=== PATIENT | female | born 1950 | race Caucasian/White ===

== ENCOUNTER 2020-11-04 05:34 | Day surgery (SDC) | payer MEDICARE, OTHER ==
[~2020-11-04] VITALS: Ht 158 cm; Wt 80.0 kg
[~2020-11-04 05:34] MED LIST: ASPIRIN EC81 MG PO; ATARAX25 MG PO; ATORVASTATIN CA40 MG PO; BACLOFEN20 MG PO; BUSPIRONE HCL15 M1 PO; DICLOFENAC SODI75 MG PO; DOXEPIN HCL25 MG PO; DULOXETINE HCL30 MG PO; METOPROLOL SUCC25 MG PO; OMEPRAZOLE40 MG PO; PREGABALIN200 MG PO; ROPINIROLE HCL5 MG PO; TIZANIDINE HCL4 MG PO; TRAMADOL HCL50 MG PO; TRAZODONE 100M100 MG PO
[2020-11-04] MEDS ORDERED: PERCOCET 5-3251 EACH PO (07:01)
[2020-11-04] MEDS ORDERED: FEOSOL325 MG PO (14:02)
[2020-11-05 05:21] LABS: BUN/CREAT RATIO (CALC) 29.7 RATIO; CREATININE 0.64 mg/dL (0.51-0.95); POTASSIUM 4.1 mmol/L (3.5-5.1)
[2020-11-05 05:28] LABS: BASOPHIL 0.1 % (0-2); EOSINOPHIL 0 % (0-7); HCT 33.1 % (37.0-47.0); HGB 11.3 g/dl (12.5-16.0); LYMPHOCYTE 8.6 % (15-48); MCH 30.6 pg (25.0-31.0); MCHC 34.1 g/dL (32.0-36.0); MCV 89.7 fL (78.0-100.0); MONOCYTE 11.7 % (0-12); NRBC 0; PLT 211 K/uL (150-400); RBC 3.69 M/uL (4.20-5.40); RDW 11.9 % (11.5-14.0); WBC 14.6 K/uL (4.0-10.5)
--- NOTE | 2020-11-05 13:23 | NUR ---
PT HAS REQUESTED TO GO TO [facility]. REFERRAL SENT TO [facility]. PT. HAS BEEN ACCEPTED PENDING COVID TEST. ADVISED XOCHILT MCGRATH AND SERA RIOS. ADVISED MARY ANN GAONA TO FAX D/C SUMMARY TO [facility] AT [phone] WELL COVID TEST. PT HAS SIGNED CHOICE FORM.
[2020-11-05] MEDS ORDERED: TAB-A-VITE TA400 MC1 PO (13:31)
[2020-11-05] MEDS ORDERED: STIMULANT LAXA1 EACH PO (13:31)
[2020-11-05] MEDS ORDERED: OXYCODONE-ACET1 EAC1 PO (13:31)
[2020-11-05] MEDS ORDERED: LAXATIVE SUPPOS10 MG PR (13:31)
[2020-11-05] MEDS ORDERED: DULCOLAX5 MG PO (13:31)
[2020-11-05] MEDS ORDERED: MILK OF MA400 MG/5 M PO (13:31)
--- NOTE | 2020-11-05 13:48 | NUR ---
PT. REQUESTED TO D/C TO [facility] THIS DATE. SHE HAS BEEN ACCPEPTED AT THE REHAB. ADVISED MARY ANN GAONA AND GABRIEL JORDAN.
== END 2020-11-05 14:03 | disposition home or self-care (01) ==
LOC: FAS 05:34 → EDSTATUS 07:00 → FAS 07:00 → FMS 07:00 → FAS 11-05 14:03
PROVIDERS: Orthopaedic Surgery
DX: M19.011 Primary osteoarthritis, right shoulder (principal); M17.12 Unilateral primary osteoarthritis, left knee; M71.22 Synovial cyst of popliteal space [Baker], left knee; I10 Essential (primary) hypertension; E11.9 Type 2 diabetes mellitus without complications; R09.02 Hypoxemia; Z20.822 Contact with and (suspected) exposure to COVID-19
CPT/HCPCS: 36415; 73020; 80048; 85025; 86850; 86900; 86901; 94010; 97116; 97161; 97166; 97535; C1713; C1776; J0171; J0697; J1100; J1170; J2250; J2370; J2405; J2704; J2795; J7120; U0002